=== PATIENT | female | born 1965 ===

== ENCOUNTER 2019-07-11 05:47 | Day surgery (SDC) | payer OTHER ==
[2019-07-11] VITALS (15 sets, daily range): BP systolic 104–157; BP diastolic 63–95; PULSE 48–85; TEMP 97.7
[~2019-07-11] VITALS: Ht 165.1 cm; Wt 113.9 kg
[2019-07-11 06:31] LABS: HEMATOCRIT 41.7 % (37.0-47.0); HEMOGLOBIN 13.9 g/dl (12.5-16.0); MEAN CELL VOLUME 91 fl (80.0-100.0); MEAN CORPUSCULAR HEMOGLOBIN 30 pg (27.0-31.0); MEAN CORPUSCULAR HGB CONC 33 g/dl (33.0-37.0); MEAN PLATELET VOLUME 9.2 fl (7.4-10.4); PLATELET COUNT 188 K/mm3 (130-400); RED BLOOD COUNT 4.61 M/mm3 (4.10-5.30); REDCELL DISTRIBUTION WIDTH-CV 11.9 % (11.5-14.5)
[2019-07-11 06:44] LABS: INR 0.9 (0.8-3.0); PROTHROMBIN TIME 10.2 SECONDS (9.7-12.8)
[2019-07-11 06:46] LABS: CALCIUM 8.9 mg/dL (8.4-10.2); CREATININE, serum 0.86 (0.52-1.25); POTASSIUM 3.7 mmol/L (3.4-5.0)
[2019-07-11 06:47] LABS: PARTIAL THROMBOPLASTIN TIME 33.9 SECONDS (26.0-37.0)
[2019-07-11] MEDS ORDERED: STRATTERA60 MG PO (07:17)
[2019-07-11] MEDS ORDERED: ASPIRIN E.C. 8181 MG PO (07:18)
[2019-07-11] MEDS ORDERED: NITROSTAT0.4 MG/TAB SL (07:19)
[2019-07-11] MEDS ORDERED: PRINIVIL10 MG PO (07:20)
[2019-07-11] MEDS ORDERED: SYNTHROID0.075 MG/T PO (07:21)
[2019-07-11] MEDS ORDERED: B-121000 MCG PO (07:21)
[2019-07-11] MEDS ORDERED: CALCIUM CITRAT950 MG PO (07:23)
--- NOTE | 2019-07-11 07:23 | NUR ---
Pt to procedure,report to Osmany Crump.
[2019-07-11] MEDS ORDERED: MIRALAX PA17 GM/Dose PO (07:24)
--- NOTE | 2019-07-11 07:37 | NUR ---
SEE MERGE FOR MEDICATION ADMINISTRATION TIMES AND INTRA AND POST SEDATION ASSESSMENTS.
--- NOTE | 2019-07-11 08:30 | NUR ---
trasported to express unit, bedside review with master. hemostasis maintained to right groin, dressing c/d/i, skin soft, no hematomoa. distal pulses 2+
--- NOTE | 2019-07-11 08:33 | NUR ---
Pt returned from procedure,report from Osmany Crump.
--- NOTE | 2019-07-11 12:04 | NUR ---
Discharge instructions given to pt.pt verbalizes understanding.INT removed,catheter tip intact.Pt escorted out via wheelchair by this nurse.
== END 2019-07-11 12:19 | disposition home or self-care (01) ==
LOC: COL.CAR 05:47
PROVIDERS: Internal Medicine Interventional Cardiology
DX: R94.39 Abnormal result of other cardiovascular function study (principal); I20.9 Angina pectoris, unspecified; E03.9 Hypothyroidism, unspecified; Z79.82 Long term (current) use of aspirin; Z88.1 Allergy status to other antibiotic agents; Z88.2 Allergy status to sulfonamides; Z88.8 Allergy status to other drugs, medicaments and biological substances
CPT/HCPCS: J1644; J2250; J3010